=== PATIENT | female | born 1950 | race Caucasian/White ===

== ENCOUNTER 2019-05-04 09:36 | Outpatient (CLI) | payer MEDICARE, OTHER, SELFPAY ==
--- NOTE | 2019-05-04 09:54 | MM_ITS ---
WS: [id number] BILATERAL SCREENING DIGITAL MAMMOGRAM WITH CAD HISTORY: SCREENING COMPARISON: 05/05/2017 and 03/17/2015 Bilateral CC and MLO views submitted. Computer aided detection analyzed. Breast composition: There are scattered areas of fibroglandular density. No suspicious masses, microc alcifications or architectural distortion. Benign calcifications within each breast. MM/[place] [id number] IMPRESSION: BI-RADS: 2-Benign FOLLOW UP: 1 Year Follow-up
== END 2019-05-04 09:37 | disposition home or self-care (01) ==
LOC: RADSHAW 09:44
PROVIDERS: Family Provider Family Medicine; PCP Family Medicine; Visit Provider Nurse Practitioner Women's Health
DX: Z12.31 Encounter for screening mammogram for malignant neoplasm of breast (principal)
CPT/HCPCS: 77067

== ENCOUNTER 2021-03-30 12:32 | Outpatient (CLI) | payer MEDICARE, OTHER, SELFPAY ==
--- NOTE | 2021-03-30 12:43 | XRR_ITS ---
PROCEDURE INFORMATION: Exam: XR Lumbosacral Spine Exam date and time: 03/30/2021 12:43 PM Age: 70 years old Clinical indication: Low back pain; Patient HX: Pain in lt calf. Radiates into junior and up into the lt thigh and hip. PT is having a very hard time walking. No known injury just woke up 3wks ago to extreme sharp stabbing pain in lt calf. ; Additional info: Pain in L hip /low back pain/left leg pain TECHNIQUE: Imaging protocol: XR of the lumbosacral spine. Views: 2 or 3 views. COMPARISON: CR XR femur LT min 2V* [id number] 03/30/2021 1:17 PM FINDINGS: Bones/joints: Normal. No acute fracture. Normal alignment. Soft tissues: Unremarkable. XR/XR lumbar spine 2-3V* [id number] IMPRESSION: No acute findings.
--- NOTE | 2021-03-30 12:43 | XRR_ITS ---
PROCEDURE INFORMATION: Exam: XR Left Femur Exam date and time: 03/30/2021 12:43 PM Age: 70 years old Clinical indication: Left; Patient HX: Pain in lt calf. Radiates into junior and up into the lt thigh and hip. PT is having a very hard time walking. No known injury just woke up 3wks ago to extreme sharp stabbing pain in lt calf. ; Additional info: Pain in left hip leg TECHNIQUE: Imaging protocol: XR Left femur. Views: 2 views. COMPARISON: CR XR knee LT 1-2V [id number] 03/30/2021 1:07 PM FINDINGS: Bones/joints: Unremarkable. No acute fracture. Soft tissues: Unremarkable. XR/XR femur LT min 2V* [id number] IMPRESSION: No acute findings.
--- NOTE | 2021-03-30 12:46 | XRR_ITS ---
PROCEDURE INFORMATION: Exam: XR Left Hip Exam date and time: 03/30/2021 12:46 PM Age: 70 years old Clinical indication: Hip pain; Left hip; Patient HX: Pain in lt calf. Radiates into junior and up into the lt thigh and hip. PT is having a very hard time walking. No known injury just woke up 3wks ago to extreme sharp stabbing pain in lt calf. ; Additional info: Left hip pain L leg pain/low back pain TECHNIQUE: Imaging protocol: XR Left hip. Views: 2 or 3 views hip with pelvis when performed. COMPARISON: CR XR lumbar spine 2-3V* [id number] 03/30/2021 1:18 PM FINDINGS: Bones/joints: Unremarkable. No acute fracture. Soft tissues: Unremarkable. XR/XR hip LT 2-3V wo/w pel* [id number] IMPRESSION: No acute findings.
--- NOTE | 2021-03-30 12:46 | XRR_ITS ---
PROCEDURE INFORMATION: Exam: XR Left Knee Exam date and time: 03/30/2021 12:46 PM Age: 70 years old Clinical indication: Knee; Left; Patient HX: Pain in lt calf. Radiates into junior and up into the lt thigh and hip. PT is having a very hard time walking. No known injury just woke up 3wks ago to extreme sharp stabbing pain in lt calf. ; Additional info: Left hip leg pain/low back pain TECHNIQUE: Imaging protocol: XR Left knee. Views: 1 or 2 views. COMPARISON: No relevant prior studies available. FINDINGS: Bones/joints: Negative for acute bony abnormality. Soft tissues: Normal. XR/XR knee LT 1-2V [id number] IMPRESSION: No acute findings.
== END 2021-03-30 12:33 | disposition home or self-care (01) ==
PROVIDERS: PCP Nurse Practitioner Family; Visit Provider Nurse Practitioner Family
DX: M25.552 Pain in left hip (principal); M54.50 Low back pain, unspecified; M79.605 Pain in left leg
CPT/HCPCS: 72100; 73502; 73552; 73560

== ENCOUNTER 2021-10-02 11:03 | Outpatient (CLI) | payer MEDICARE, OTHER, SELFPAY ==
--- NOTE | 2021-10-02 11:11 | MM_ITS ---
WS: [id number] Bilateral screening 3D tomosynthesis digital mammogram, 10/02/2021 Clinical Data: SCREENING Comparison: 05/04/2019, 05/05/2017, 03/17/2015, 07/10/2013, 12/18/2010, 06/25/2008. Findings: The breast parenchymal pattern shows fibroglandular tissue No spiculated masses or clustered calcific ations are seen. There are no secondary signs of carcinoma. MM/[place] [id number] Impression: 1. Negative bilateral mammogram unchanged. 2. Recommend annual screening mammograms. BIRADS: 1-Negative FOLLOW UP: 1 Year Follow-up The CAD electric distribution checker was used.
== END 2021-10-02 11:04 | disposition home or self-care (01) ==
PROVIDERS: PCP Nurse Practitioner Family; Visit Provider Nurse Practitioner Family
DX: Z12.31 Encounter for screening mammogram for malignant neoplasm of breast (principal)
CPT/HCPCS: 77063; 77067

== ENCOUNTER 2023-11-17 10:52 | Outpatient (CLI) | payer MEDICARE, OTHER, SELFPAY ==
--- NOTE | 2023-11-17 11:03 | MM_ITS ---
WS: [id number] BILATERAL 3D TOMOSYNTHESIS DIGITAL DIAGNOSTIC MAMMOGRAPHY WITH CAD CLINICAL INFORMATION: MASTODYNIA HISTORY: RIGHT breast pain COMPARISON: 2021 TECHNIQUE: Bilateral CC, MLO, and ML views. FINDINGS: Scattered fibroglandular densities bilaterally. Area of pain indicated with marker upper outer RIGHT breast posteriorly. No suspicious parenchymal abnormalities visualized in this area. Ultrasound is pe nding. RIGHT breast appears unchanged. A few incidental punctate calcifications. ULTRASOUND BREAST RIGHT TECHNIQUE: Ultrasound right breast focused area of concern. CLINICAL INFORMATION: MASTODYNIA FINDINGS: Ultrasound RIGHT breast in the area of concern. Ultrasound RIGHT breast at the 6-12 o'clock positions . Normal underlying parenchymal tissue. No cystic or solid lesions. No suspicious lesions to target f or biopsy. Recommend return to annual screening mammography. MM/[place] [id number] IMPRESSION: BI-RADS: 2-Benign FOLLOW UP: 1 Year Follow-up Recommend return to annual screening mammography.
== END 2023-11-17 10:53 | disposition home or self-care (01) ==
LOC: RAD 10:54
PROVIDERS: PCP Nurse Practitioner Family; Visit Provider Nurse Practitioner Family
DX: N64.4 Mastodynia (principal); R92.30 Dense breasts, unspecified
CPT/HCPCS: 76642; 77062; G0279

== ENCOUNTER 2024-01-12 13:30 | Outpatient (CLI) | payer MEDICARE, OTHER, SELFPAY ==
--- NOTE | 2024-01-12 13:34 | XR_ITS ---
WS: [id number] Right hand, 3 views, 01/12/2024 Clinical Data: Numbness of right hand Comparison: None. Findings: No fractures or dislocations are seen. The soft tissues are unremarkable. There is osteoa rthritis of the right second through fifth DIP joints. The worst changes involve the third finger DIP joint. 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
--- NOTE | 2024-01-12 13:34 | XR_ITS ---
WS: [id number] Left hand, 3 views, Clinical Data: Numbness of left hand Comparison: None. Findings: No fractures or dislocations are seen. The soft tissues are unremarkable. There is osteoarthritis of the DIP joints of the left second through fifth fingers and also of the IP joint of the left thumb. 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
== END 2024-01-12 13:31 | disposition home or self-care (01) ==
LOC: RAD 13:31
PROVIDERS: PCP Nurse Practitioner Family; Visit Provider Nurse Practitioner Family
DX: M19.041 Primary osteoarthritis, right hand (principal); M19.042 Primary osteoarthritis, left hand; R20.0 Anesthesia of skin
CPT/HCPCS: 73130